=== PATIENT | female | born 2000 | race Caucasian/White ===

== ENCOUNTER 2019-05-17 21:38 | Emergency (ER) | payer OTHER ==
[~2019-05-17] VITALS: Ht 162.6 cm; Wt 110.2 kg
[2019-05-17 21:45] VITALS: BP 127/67
--- NOTE | 2019-05-17 21:45 | NUR ---
TO BED # 02 AMBULATORY
--- NOTE | 2019-05-17 21:49 | NUR ---
NO DISCHARGE NOTED ON RIGHT BIGTOE.
--- NOTE | 2019-05-17 21:49 | NUR ---
18 Y/O FEMALE C/O RIGHT BIG TOE INGROWN TOENAIL X SEPT. PT STATES SHE SAW HER DR AND PRESCRIBED HER AMOXICILLIN AND JUST RECENTLY THESE PAST FEW DAYS THE RIGHT TOENAIL HAS BEEN GETTING WORSE. CMS INTACT BILAT LEGS AND FEET. RIGHT BIG TOE SHOWS REDNESS, SWELLING, AND TENDERNESS TO TOUCH. PT ALSO STATES THE PAIN GETS WORSE WHEN SHES PUTTING PRESSURE ON HER TOE WHEN WALKING OR STANDING. PT HAS STEADY GAIT. VSS. RATES PAIN 7/10 AND DESCRIBES IT STABBING AND BURNING FEELING. NKA. PMH: ASTHMA.
--- NOTE | 2019-05-17 22:04 | NUR ---
ERMD AT BEDSIDE TO EVAL PT.
[2019-05-17 22:14] VITALS: BP 127/67
--- NOTE | 2019-05-17 22:14 | NUR ---
Patient discharged with v/s stable. Written and verbal after care instructions given and explained. Patient alert, oriented and verbalized understanding of instructions. Ambulatory with steady gait. All questions addressed prior to discharge. ID band removed. Patient advised to follow up with PMD. Rx of BACTRIM, KEFLEX, NORCO, MOTRIN given. Patient educated on indication of medication including possible reaction and side effects. Opportunity to ask questions provided and answered.
== END 2019-05-17 22:14 | disposition home or self-care (01) ==
LOC: MED 21:38
DX: L60.0 Ingrowing nail (principal); J45.909 Unspecified asthma, uncomplicated; Z90.49 Acquired absence of other specified parts of digestive tract
CPT/HCPCS: 99283